=== PATIENT | female | born 1990 | race African-American/Black ===

== ENCOUNTER 2019-05-26 11:00 | Emergency (ER) | payer MEDICAID ==
[~2019-05-26] VITALS: Ht 167.6 cm; Wt 77.0 kg
[2019-05-26] MEDS ORDERED: AZITHROMYCIN 500 MG TABLET PO ONE (12:15)
[2019-05-26] MEDS ORDERED: CEFTRIAXONE SODIUM 250 MG/VIAL IM ONE (12:15)
[2019-05-26 12:26] LABS: CLARITY URINE CLEAR (CLEAR); COLOR URINE YELLOW (YELLOW); KETONES URINE TRACE (NEGATIVE); LEUKOCYTE ESTERASE URINE NEGATIVE (NEGATIVE); NITRITE URINE NEGATIVE (NEGATIVE); OCCULT BLOOD URINE NEGATIVE (NEGATIVE); PH URINE 5.5 (4.5-8.0); PROTEIN URINE NEGATIVE (NEGATIVE); SPECIFIC GRAVITY URINE 1.023 (1.005-1.030); UROBILINOGEN URINE 0.2 E.U./dL (0.2-1.0)
[2019-05-26 12:51] VITALS: BP 128/74
[2019-05-28 04:12] LABS: CHLAMYDIA TRACHOMATIS NAA Negative (Negative); NEISSERIA GONORRHOEAE NAA Negative (Negative)
== END 2019-05-26 12:55 | disposition home or self-care (01) ==
LOC: ER 11:00
DX: N76.0 Acute vaginitis (principal); N89.8 Other specified noninflammatory disorders of vagina; F12.10 Cannabis abuse, uncomplicated; F17.200 Nicotine dependence, unspecified, uncomplicated
CPT/HCPCS: 81003; 81025; 87491; 87591; 96372; 99283; J0696

== ENCOUNTER 2021-05-04 08:35 | Emergency (ER) | payer MEDICAID ==
[~2021-05-04] VITALS: Ht 172.7 cm; Wt 79.0 kg
[2021-05-04 08:44] VITALS: BP 112/79
[2021-05-04] MEDS ORDERED: LORAZEPAM 1MG TABLET PO ONE (10:15)
[2021-05-04 10:41] LABS: BASOPHILS % 0.3 % (0.0-2.0); HEMATOCRIT. 41.5 % (36.0-48.0); HEMOGLOBIN. 13.4 g/dL (12.0-16.0); LYMPHOCYTES % 22.2 % (20.0-50.0); MEAN CORPUSCULAR HEMOGLOBIN 25.2 pg (28.0-32.0); MEAN CORPUSCULAR VOLUME 78.4 fL (81.0-99.0); MEAN PLATELET VOLUME 8.4 fl (7.4-10.4); MONOCYTES % 3.3 % (2.0-8.0); NEUTROPHILS % 73.2 % (40.0-76.0); PLATELET 222 x1000/uL (130-400); RED CELL DISTRIBUTION WIDTH 14.9 % (11.6-14.6)
[2021-05-04] MEDS ORDERED: ACETAMINOPHEN 325MG TABLET PO ONE (10:45)
[2021-05-04 10:48] LABS: CHLORIDE 108 mEq/L (98-107)
[2021-05-04 11:06] LABS: HCG SCREEN NEGATIVE
== END 2021-05-04 12:39 | disposition home or self-care (01) ==
LOC: ER 09:35
DX: R51.9 Headache, unspecified (principal); F41.9 Anxiety disorder, unspecified; F12.10 Cannabis abuse, uncomplicated
CPT/HCPCS: 36415; 80048; 84703; 85025; 99283

== ENCOUNTER 2021-05-18 10:11 | Emergency (ER) | payer MEDICAID ==
[~2021-05-18] VITALS: Ht 172.7 cm; Wt 70.0 kg
[2021-05-18 10:22] VITALS: BP 122/78
[2021-05-18] MEDS ORDERED: TOPUD PO (10:26)
[2021-05-18] MEDS ORDERED: ACETAMINOPHEN 325MG TABLET PO ONE (11:00)
[2021-05-18] MEDS ORDERED: TOPUD MT (11:07)
== END 2021-05-18 11:32 | disposition home or self-care (01) ==
LOC: ER 10:11
DX: R51.9 Headache, unspecified (principal); F12.10 Cannabis abuse, uncomplicated
CPT/HCPCS: 81025; 99282

== ENCOUNTER 2024-06-28 20:28 | Emergency (ER) | payer SELFPAY ==
[~2024-06-28] VITALS: Ht 172.7 cm; Wt 86.4 kg
[~2024-06-28 20:28] MED LIST: TOPUD MT; TOPUD PO
[2024-06-28 21:16] VITALS: BP 124/74; RESP 16; TEMP 98; O2SAT 100
[2024-06-28 21:22] VITALS: PULSE 85; O2SAT 100
[2024-06-28] MEDS ORDERED: KETOROLAC 30MG/ML VIAL IM ONE (22:15)
[2024-06-28] MEDS ORDERED: KETOROLAC 30MG/ML VIAL IM NR (23:30)
== END 2024-06-29 01:30 | disposition left against medical advice (07) ==
LOC: ER 20:28
DX: R51.9 Headache, unspecified (principal)
CPT/HCPCS: 99281; J1885

== ENCOUNTER 2024-09-19 14:57 | Emergency (ER) | payer SELFPAY ==
[~2024-09-19] VITALS: Ht 175.3 cm; Wt 91.0 kg
[2024-09-19 15:01] VITALS: O2SAT 99
[2024-09-19 15:38] VITALS: BP 117/72; PULSE 74; RESP 18; TEMP 98.5; O2SAT 100
== END 2024-09-20 00:10 | disposition left against medical advice (07) ==
LOC: ER 14:57
DX: O20.8 Other hemorrhage in early pregnancy (principal); Z53.21 Procedure and treatment not carried out due to patient leaving prior to being seen by health care provider; Z36.87 Encounter for antenatal screening for uncertain dates; Z98.890 Other specified postprocedural states; Z3A.12 12 weeks gestation of pregnancy; W19.XXXA Unspecified fall, initial encounter; Y93.89 Activity, other specified; Y92.89 Other specified places as the place of occurrence of the external cause; Y99.8 Other external cause status
CPT/HCPCS: 76801; 81025

== ENCOUNTER 2024-11-11 09:02 | Emergency (ER) | payer MEDICAID ==
[~2024-11-11] VITALS: Ht 172.7 cm; Wt 69.0 kg
[2024-11-11 09:08] VITALS: O2SAT 99
[2024-11-11 09:45] VITALS: BP 124/78; PULSE 86; RESP 18; TEMP 36.9; O2SAT 99
== END 2024-11-11 09:50 | disposition home or self-care (01) ==
LOC: ER 09:02
DX: O26.892 Other specified pregnancy related conditions, second trimester (principal); Z36.89 Encounter for other specified antenatal screening; Z3A.17 17 weeks gestation of pregnancy
CPT/HCPCS: 76815; 99284